=== PATIENT | female | born 1965 | race Two or more races ===

== ENCOUNTER 2018-05-21 14:06 | Emergency (ER) | payer SELFPAY ==
[~2018-05-21] VITALS: Ht 162.6 cm; Wt 60.8 kg
[2018-05-21 14:09] VITALS: Ht 162.6 cm; Wt 60.8 kg
[2018-05-21 17:44] VITALS: BP 135/87
== END 2018-05-21 17:44 | disposition home or self-care (01) ==
LOC: ED 14:06
DX: R50.9 Fever, unspecified (principal); M79.10 Myalgia, unspecified site